=== PATIENT | male | born 1965 | race Caucasian/White ===

== ENCOUNTER → 2022-08-16 13:47 | Outpatient (CLI) | payer BC, SELFPAY ==
--- NOTE | ~2022-08-16 | XR_ITS ---
EXAMINATION: XR ankle LT 2V DATE: 08/16/2022 14:34 INDICATION: Multiple joint pain. TECHNIQUE: 2 views of left ankle were obtained. COMPARISON: None. FINDINGS: Bone alignment is normal. No fracture. There is mild midfoot osteoarthritis. There is wides pread enthesopathy in the foot and ankle. There are widespread soft tissue calcifications in the lowe r leg. IMPRESSION: 1. Mild polyarticular osteoarthritis. 2. Dystrophic soft tissue calcifications in the lower leg. Reviewed, dictated and finalized at location A. IMS ADVOCATE CLERK/SPECIALIST
--- NOTE | ~2022-08-16 | XR_ITS ---
EXAMINATION: XR hand RT 2V, XR hand LT 2V, XR wrist LT 2V, XR wrist RT 2V DATE: 08/16/2022 14:34 INDICATION: Multiple joint pain TECHNIQUE: 1. Posteroanterior and lateral views of the right wrist were obtained. 2. Dorsal palmar and lateral views of the right hand were obtained. 3. Posteroanterior and lateral views of the left wrist were obtained. 4. Dorsal palmar and lateral views of the left hand were obtained. COMPARISON: None. FINDINGS: Normal alignment at the bilateral hands and wrists. No fracture. Polyarticular osteoarthritis at the bilateral hands and wrists, moderate to severe at the left second metacarpophalangeal joint, mild to moderate at the right first metacarpophalangeal joint and mild at the bilateral distal radioulnar, fi rst carpometacarpal and many of the remaining metacarpophalangeal and interphalangeal joints. No eros ions to suggest an inflammatory arthritis. There is a small round metallic foreign body in the soft tissues between the necks of the left second and third metacarpals suggesting a BB or shotgun pellet. There is a 3.1 x 0.7 cm oblong region of in creased density in the surrounding soft tissues situated between the diaphysis of the left second and third metaphyses. IMPRESSION: 1. Bilateral polyarticular osteoarthritis, moderate to severe at the left second metacarpophalangeal, mild to moderate at the first metacarpal phalangeal and mild at many of the remaining joints at the bilateral hands and wrists. 2. Herbster soft tissue density surrounding a small round metallic foreign body situated between the le ft second and third metacarpals suggesting posterior lytic dense scarring or subtle heterotopic ossif ication. Reviewed, dictated and finalized at location B. ING DEPARTMENT HELPER IMPRESSION: 1. Bilateral polyarticular osteoarthritis, moderate to severe at the left secon d metacarpophalangeal, mild to moderate at the first metacarpal phalangeal and mild at many of the remaining joints at the bilateral hands and wrists. 2. Herbster soft tissue density surrounding a small round metallic foreign body s ituated between the left second and third metacarpals suggesting posterior lyti c dense scarring or subtle heterotopic ossification. IMPRESSION: 1. Bilateral polyarticular osteoarthritis, moderate to severe at the left secon d metacarpophalangeal, mild to moderate at the first metacarpal phalangeal and mild at many of the remaining joints at the bilateral hands and wrists. 2. Herbster soft tissue density surrounding a small round metallic foreign body s ituated between the left second and third metacarpals suggesting posterior lyti c dense scarring or subtle heterotopic ossification. IMPRESSION: 1. Bilateral polyarticular osteoarthritis, moderate to severe at the left secon d metacarpophalangeal, mild to moderate at the first metacarpal phalangeal and mild at many of the remaining joints at the bilateral hands and wrists. 2. Herbster soft tissue density surrounding a small round metallic foreign body s ituated between the left second and third metacarpals suggesting posterior lyti c dense scarring or subtle heterotopic ossification.
--- NOTE | ~2022-08-16 | XR_ITS ---
EXAMINATION: XR foot LT 2V DATE: 08/16/2022 14:34 INDICATION: Multiple joint pain TECHNIQUE: 1. Anteroposterior and lateral view of the left ankle were obtained. 2. Dorsoplantar and lateral views of the left foot were obtained. COMPARISON: None. FINDINGS: Alignment of the foot and ankle is normal. No fracture. Large enthesophytes and large enthesopathic o ssicles at the calcaneal insertion of the distal Achilles tendon and calcaneal origin of the proximal plantar aponeurosis. Additional smaller enthesophytes at the sites of capsular and tendinous inserti ons at the medial and lateral malleoli comment the dorsal aspect of the tarsal bones, at the base of the fifth metatarsal and bases of multiple phalanges. Mild polyarticular osteoarthritis involving the left ankle joint and many of the joints throughout the left foot. No erosions to suggest inflammator y arthritis.Soft tissues in the left foot are unremarkable. No left ankle joint effusion. Soft tissue swelling about the ankle and prominent dystrophic subdermal calcifications about the distal left teresa f most likely related to chronic venous insufficiency. IMPRESSION: 1. Mild polyarticular osteoarthritis and prominent enthesophytes and enthesopathic ossification throu ghout the left foot and ankle, the latter which can be seen in the setting of diffuse idiopathic skel etal hyperostosis (DISH). 2. Prominent subdermal dystrophic calcifications at the distal calf most typically seen with chronic venous insufficiency. Reviewed, dictated and finalized at location B. KDOWN WORKER IMPRESSION: 1. Mild polyarticular osteoarthritis and prominent enthesophytes and enthesopat hic ossification throughout the left foot and ankle, the latter which can be se en in the setting of diffuse idiopathic skeletal hyperostosis (DISH). 2. Prominent subdermal dystrophic calcifications at the distal calf most typica lly seen with chronic venous insufficiency.
--- NOTE | ~2022-08-16 | XR_ITS ---
EXAMINATION: XR foot RT 2V DATE: 08/16/2022 14:34 INDICATION: Multiple joint pain. TECHNIQUE: 2 views of right foot were obtained. COMPARISON: None. FINDINGS: Bone alignment is normal. No acute fracture. There is an old healed fracture of diaphysis o f fourth metatarsal. There is likely an old healed fracture of head of fifth proximal phalanx. There is mild osteoarthritis of first and second metatarsophalangeal joints and many of the interphalangeal joints and midfoot joints. There are widespread enthesophytes in the foot and ankle. There are wides pread soft tissue calcifications in the calf. IMPRESSION: 1. Mild polyarticular osteoarthritis. 2. Widespread dystrophic calcifications in the soft tissues of the calf. Reviewed, dictated and finalized at location A. GEMENT PSYCHOLOGIST
--- NOTE | ~2022-08-16 | XR_ITS ---
EXAMINATION: XR sacroiliac joints min 3V DATE: 08/16/2022 14:34 INDICATION: Multiple joint pain TECHNIQUE: AP and left and right oblique views of the bilateral sacroiliac joints were obtained. COMPARISON: None. FINDINGS: Partially visualized bilateral total hip arthroplasties which appear near-anatomic alignment. No luce ncy surrounding acetabular component or the visualized proximal portions of the femoral components. B ilaterally there is prominent heterotopic ossification between the acetabula and the greater trochant ers. No fracture. Mild to moderate bilateral sacroiliac osteoarthritis. No evident erosions to sugges t inflammatory sacroiliitis. Moderate lumbosacral spondylosis. Partially visualized iliac limbs of li neil aortobiiliac stent. IMPRESSION: 1. Mild to moderate bilateral sacroiliac osteoarthritis. Reviewed, dictated and finalized at location B. RAPHY PROFESSOR
--- NOTE | ~2022-08-16 | XR_ITS ---
EXAMINATION: XR ankle RT 2V DATE: 08/16/2022 14:34 INDICATION: Multiple joint pain. TECHNIQUE: 2 views of right ankle were obtained. COMPARISON: None. FINDINGS: Bone alignment is normal. No fracture. There is mild midfoot osteoarthritis. There is wides pread enthesopathy in the foot and ankle. There are widespread dystrophic soft tissue calcifications in the lower leg. IMPRESSION: 1. Mild polyarticular osteoarthritis. 2. Widespread dystrophic soft tissue calcifications in the lower leg. Reviewed, dictated and finalized at location A. [facility]
== END ==
PROVIDERS: PCP Physician Assistant; Visit Provider Internal Medicine Rheumatology
DX: M25.50 Pain in unspecified joint (principal); M19.071 Primary osteoarthritis, right ankle and foot; M19.072 Primary osteoarthritis, left ankle and foot; M53.3 Sacrococcygeal disorders, not elsewhere classified; M19.041 Primary osteoarthritis, right hand; M19.042 Primary osteoarthritis, left hand; M19.031 Primary osteoarthritis, right wrist; M19.032 Primary osteoarthritis, left wrist
CPT/HCPCS: 72202; 73100; 73120; 73600; 73620